=== PATIENT | female | born 1955 | race Caucasian/White ===

== ENCOUNTER 2018-04-20 15:59 | Inpatient (IN) | payer MEDICAID ==
[~2018-04-20] VITALS: Ht 157.5 cm; Wt 48.6 kg
[2018-05-27] MEDS ORDERED: VITAMIN B COMPL1 SGL PO (10:55)
[2018-05-27] MEDS ORDERED: NITROSTAT0.3 MG SL (14:58)
[2018-07-27] VITALS (11 sets, daily range): BP systolic 84–114; BP diastolic 37–69; PULSE 53–67; TEMP 97–98
--- NOTE | 2018-07-27 00:30 | NUR ---
Patient called out stating she needed to use the restroom. Patient reluctant to get up out of bed as she used the bedpan earlier and had not been out of bed yet as she refused to get up to ambulate earlier. Patient assisted to a sitting position with assist x 2 and sat for a few minutes before ambulating a few feet to the bedside commode. Patient is hesitant on putting weight on the RLE using a toe touch at this time. Patient voided and then was assisted back into bed with assist x 2 stating she was nauseous and needed IV Morpine due to the level of pain. Bed remains in a low position with call light in reach.
[2018-07-27] MEDS ORDERED: 00186-0370-20 IH (05:39)
[2018-07-27] MEDS ORDERED: PROAIR HFA0.09 MG/AC IH (05:40)
--- NOTE | 2018-07-27 06:42 | NUR ---
PT ADMITTED AMBULATORY TO ROOM 331. IV TO LFA, MEDICATIONS GIVEN, PT TO SURGERY PER BED. CONSENT SIGNED ON CHART.
--- NOTE | 2018-07-27 11:03 | NUR ---
PT TO ROOM 331 PER BED BY [facility]. REPORT FROM [facility] @ 1049. PT DROWSEY BUT AROUSABLE. DRESSING TO RIGHT HIP CDI WITH OCCLUSIVE FOAM TAPE. LUNGS CTA, BOWEL SOUNDS PRESENT PEDAL PULSES PALPABLE. SCD BILATERALLY.
--- NOTE | 2018-07-27 14:23 | NUR ---
SW met with patient to discuss discharge planning. Patient lives alone in [place]. She reports her daughter lives 7 miles away and will be there to help her where needed. She originally wanted to go to [facility] however sw called Kinjal at the [facility] who reports Medicaid will not pay for swing bed and they would not be able to accept. CONG talked with patient about this and she reports she would like to go home. SW offered HH or OP therapy, she denied both. Patients PCP is Dr Parks and she obtains her mediations from [facility]. Patient has a walker and reports her home is ready and has a tub transfer bench as well. SW will continue to follow for discharge needs.
--- NOTE | 2018-07-27 15:05 | NUR ---
Initial visit; Patient thanked Box [employer]pper for looking in on her and offering God's blessings.
--- NOTE | 2018-07-27 15:10 | NUR ---
PT REPORTS THAT PAIN WAS 8/10 PRIOR TO MEDICATION AND NOW IS 2/10.
--- NOTE | 2018-07-27 17:20 | NUR ---
attempted to ambulate pt to br unsucessful. Patient became lightheaded and nauseaus. Returned to bed iv zofran given per orders, pt voided in bedpan. pt reporting increasing pain.PO pain meds given per order.
--- NOTE | 2018-07-27 20:00 | NUR ---
ASSESSEMENT COMPLETE SEE NOTE. VS STABLE.
--- NOTE | 2018-07-27 21:00 | NUR ---
Patient refusing to ambulate this evening at this time. Educated on next time she needs to use the restroom we would get up instead of using the bedpan like she did on day shift. Patient seems to be hesitant on following through with getting up later, will re-inforce.
[2018-07-28] VITALS: BP 96/46; PULSE 61; TEMP 98.5
--- NOTE | 2018-07-28 00:30 | NUR ---
Patient called out stating she needed to use the restroom. Patient reluctant to get up out of bed as she used the bedpan earlier and had not been out of bed yet as she refused to get up to ambulate earlier. Patient assisted to a sitting position with assist x 2 and sat for a few minutes before ambulating a few feet to the bedside commode. Patient is hestitant on putting weight on the RLE using a toe touch at this time. Patient voided and then was assisted back into bed with assist x 2 stating she was nauseous and needed IV Morphine due to the level of pain. Bed remains in a low position with call light in reach.
[2018-07-28 04:00] VITALS: BP 94/51; PULSE 73; TEMP 98.3
--- NOTE | 2018-07-28 06:40 | NUR ---
bedside shift report received from Fiorella RN, Dr Son in to see patient
--- NOTE | 2018-07-28 07:03 | NUR ---
assisted up to bathroom with 1 assist, moves slow but with steady gait
--- NOTE | 2018-07-28 08:22 | NUR ---
sitting up in chair eating breakfast, c/o pain 12/19 and medicated with hydrocodone 7.5mg 2 tabs
[2018-07-28 08:59] VITALS: BP 82/32; PULSE 54; TEMP 98.5
--- NOTE | 2018-07-28 09:15 | NUR ---
physical therapy in to work with patient, ambulating in tran with slow steady gait, then occupational therapy in to visit with patient, remains up in chair
--- NOTE | 2018-07-28 10:15 | NUR ---
resting in chair talking on the phone
--- NOTE | 2018-07-28 10:33 | NUR ---
full assessment completed, see interventions for further info
[2018-07-28 12:26] VITALS: BP 85/45; PULSE 59; TEMP 97.7
--- NOTE | 2018-07-28 12:32 | NUR ---
pain is currently 6.10 and medicated with roxicodone 10mg, will order lunch soon
--- NOTE | 2018-07-28 13:42 | NUR ---
back to bed after therapy and is eating lunch
--- NOTE | 2018-07-28 15:54 | NUR ---
c/o pain 01/19, medicated with hydrocodone 7.5mg 2 tabs
[2018-07-28 16:10] VITALS: BP 107/77; PULSE 80; TEMP 98
--- NOTE | 2018-07-28 19:04 | NUR ---
bedside shift report given to PHOENIX Silvestre
--- NOTE | 2018-07-28 20:00 | NUR ---
Shift assessment complete. Patient c/o 10/19 in right hip. Prn pain medication given. Right hip dressing CDI. Will continue to monitor.
[2018-07-28 21:41] VITALS: BP 94/42; PULSE 71; TEMP 98.6
[2018-07-29 00:54] VITALS: BP 95/46; PULSE 66; TEMP 99.6
[2018-07-29 05:13] VITALS: BP 99/49; PULSE 58; TEMP 99
[2018-07-29] MEDS ORDERED: XARELTO10 MG PO (06:36)
[2018-07-29] MEDS ORDERED: NORCO 325 MG-7.1 TAB PO (06:37)
[2018-07-29] MEDS ORDERED: ROXICODONE 55 MG/TAB PO (06:37)
[2018-07-29] MEDS ORDERED: Patient's Own Medica IH ×2 (06:38)
--- NOTE | 2018-07-29 07:00 | NUR ---
awake resting in bed, bedside shift report received from PHOENIX Silvestre
[2018-07-29 07:02] VITALS: BP 86/39; PULSE 55; TEMP 98.4
--- NOTE | 2018-07-29 08:00 | NUR ---
up in chair and has had breakfast, full assessment completed, see interventions for further info,
--- NOTE | 2018-07-29 09:15 | NUR ---
occupational therapy in to work with patient and assist with taking a shower
--- NOTE | 2018-07-29 11:00 | NUR ---
ambulating in tran with physical therapy
[2018-07-29 11:30] VITALS: BP 94/48; PULSE 59; TEMP 98.4
--- NOTE | 2018-07-29 11:35 | NUR ---
c/o pain 12/19 and medicated with roxicodone 10mg po
--- NOTE | 2018-07-29 11:54 | NUR ---
SW student was informed that OT recommends HH with OT. Dr. Son has overridden this recommendation and is not ordering HH. No additional needs at this time. Patient is to discharge back home today, 07/29.
--- NOTE | 2018-07-29 12:28 | NUR ---
Follow-up visit; Patient thanked for looking in on her and wishing her well.
--- NOTE | 2018-07-29 12:30 | NUR ---
up in chair eating lunch, denies needs
--- NOTE | 2018-07-29 13:14 | NUR ---
ambulated out to tran with physical therapy for group exercises
--- NOTE | 2018-07-29 14:31 | NUR ---
in bed and appears to be dozing
--- NOTE | 2018-07-29 16:00 | NUR ---
resting in bed, when asked about pain she grimaces and states she is still having pain after the pain pills and just doesn't feel as good today, states she called Dr Son office to ask if she could stay another day, informed her she could have notified myself and I would have notified Dr Son, will talk with Dr Son
[2018-07-29 16:18] VITALS: BP 115/44; PULSE 69; TEMP 99.6
--- NOTE | 2018-07-29 16:28 | NUR ---
called Dr Son office and left message with Domenic RN, nurse at the office
--- NOTE | 2018-07-29 17:12 | NUR ---
entered room and her daughter is here and she states she is ready to go home, discharge instructions given to her and her daughter and verbalizes understanding
--- NOTE | 2018-07-29 17:15 | NUR ---
discharged per WC
== END 2018-07-29 17:15 | disposition home or self-care (01) | DRG 470 ==
LOC: JCC 05-26 07:30
PROVIDERS: ADMIT Orthopaedic Surgery
PROC: 0SR90JA Replacement of Right Hip Joint with Synthetic Substitute, Uncemented, Open Approach (ICD-10-PCS; principal; 2018-07-27 07:30)
DX: M16.11 Unilateral primary osteoarthritis, right hip (principal); M79.7 Fibromyalgia; J45.909 Unspecified asthma, uncomplicated
CPT/HCPCS: A9284; C1776; J0690; J1100; J2250; J2270; J2370; J2405; J2704; J3010; J7042; J7120

== ENCOUNTER → 2018-05-06 | Outpatient (CLI) | payer MEDICAID | LOC: COL.PUL 07:56 | DX: R09.89 Other specified symptoms and signs involving the circulatory and respiratory systems (principal) ==

== ENCOUNTER 2018-05-18 13:50 | Outpatient (RCR) | payer MEDICAID ==
[2018-05-27] MEDS ORDERED: VITAMIN B COMPL1 SGL PO (10:55)
[2018-05-27] MEDS ORDERED: NITROSTAT0.3 MG SL (14:58)
[2018-07-27] MEDS ORDERED: 00186-0370-20 IH (05:39)
[2018-07-27] MEDS ORDERED: PROAIR HFA0.09 MG/AC IH (05:40)
[2018-07-29] MEDS ORDERED: XARELTO10 MG PO (06:36)
[2018-07-29] MEDS ORDERED: NORCO 325 MG-7.1 TAB PO (06:37)
[2018-07-29] MEDS ORDERED: ROXICODONE 55 MG/TAB PO (06:37)
[2018-07-29] MEDS ORDERED: Patient's Own Medica IH ×2 (06:38)
== END 2018-08-16 | disposition still patient (30) ==
LOC: MKS.ESL.PT
DX: Z01.818 Encounter for other preprocedural examination (principal); M16.11 Unilateral primary osteoarthritis, right hip

== ENCOUNTER → 2018-05-18 | Outpatient (CLI) | payer MEDICAID | LOC: COL.LAB 11:19 | DX: Z01.812 Encounter for preprocedural laboratory examination (principal) ==

== ENCOUNTER 2018-05-27 10:43 | Emergency (ER) | payer MEDICAID ==
[~2018-05-27] VITALS: Ht 157.5 cm; Wt 48.6 kg
[2018-05-27 10:49] VITALS: TEMP 97.3
[2018-05-27] MEDS ORDERED: VITAMIN B COMPL1 SGL PO (10:55)
[2018-05-27 11:37] LABS: BASO # 0.1 (0.0-0.2); BASO % 0.8 % (0.0-2.0); EOS # 0.4 (0.0-0.7); EOS % 5.5 % (0-4.0); GRAN # 4.8 (1.4-6.5); HEMATOCRIT 44.2 % (37.0-47.0); HEMOGLOBIN 14.7 g/dl (12.5-16.0); LYMPH # 1.6 (1.2-3.4); MEAN CELL VOLUME 97 fl (80.0-100.0); MEAN CORPUSCULAR HEMOGLOBIN 32 pg (27.0-31.0); MEAN CORPUSCULAR HGB CONC 33 g/dl (33.0-37.0); MEAN PLATELET VOLUME 8.9 fl (7.4-10.4); MONO # 0.6 (0.1-0.6); MONO % 7.4 % (1.7-9.3); PLATELET COUNT 312 K/mm3 (130-400); RED BLOOD COUNT 4.56 M/mm3 (4.10-5.30); REDCELL DISTRIBUTION WIDTH-CV 11.9 % (11.5-14.5)
[2018-05-27 11:38] LABS: ALANINE AMINOTRANSFERASE 17 U/L (9-52); ALBUMIN 4.6 gm/dL (3.5-5.0); ALKALINE PHOSPHATASE 84 U/L (50-136); ANION GAP 11 mmol/L (7-16); AST,SGOT 28 U/L (15-37); BILIRUBIN,TOTAL 0.7 mg/dL (0.0-1.0); BLOOD UREA NITROGEN 12 mg/dL (7-17); CALCIUM 10.2 mg/dL (8.4-10.2); CARBON DIOXIDE 27 mmol/L (22-30); CHLORIDE 103 mmol/L (98-107); CREATININE, serum 0.66 mg/dL (0.52-1.25); GLUCOSE 86 mg/dL (74-106); LIPASE 77 U/L (23-300); POTASSIUM 3.8 mmol/L (3.4-5.0); SODIUM 142 mmol/L (137-145)
[2018-05-27 11:52] LABS: TROPONIN-I < 0.012 ng/mL (0.000-0.034)
[2018-05-27] MEDS ORDERED: NITROSTAT0.3 MG SL (14:58)
[2018-05-27 15:07] VITALS: BP 122/80; PULSE 59
== END 2018-05-27 15:07 | disposition home or self-care (01) ==
LOC: COL.ER 10:43
PROVIDERS: Emergency Medicine
DX: R07.9 Chest pain, unspecified (principal); R42 Dizziness and giddiness

== ENCOUNTER → 2018-07-06 | Outpatient (CLI) | payer MEDICAID ==
[~2018-07-06] MED LIST: NITROSTAT0.3 MG SL; VITAMIN B COMPL1 SGL PO
== END ==
LOC: COL.PUL 12:48
DX: R06.02 Shortness of breath (principal)
CPT/HCPCS: J7674

== ENCOUNTER → 2018-07-14 | Outpatient (CLI) | payer MEDICAID | LOC: COL.LAB 09:56 | DX: Z01.812 Encounter for preprocedural laboratory examination (principal) ==

== ENCOUNTER → 2018-12-02 | Outpatient (CLI) | payer MEDICAID ==
[~2018-12-02] MED LIST changes: +00186-0370-20 IH; +NORCO 325 MG-7.1 TAB PO; +PROAIR HFA0.09 MG/AC IH; +Patient's Own Medica IH; +ROXICODONE 55 MG/TAB PO; +XARELTO10 MG PO
[2018-12-02 17:58] LABS: BASO % 0.6 % (0.0-2.0); EOS # 0.4 (0.0-0.7); EOS % 5.6 % (0-4.0); GRAN # 4.4 (1.4-6.5); GRAN % 67.2 % (42.2-75.2); HEMATOCRIT 39.5 % (37.0-47.0); HEMOGLOBIN 12.9 g/dl (12.5-16.0); LYMPH # 1.2 (1.2-3.4); LYMPH % 18.1 % (20.0-51.0); MEAN CELL VOLUME 97 fl (80.0-100.0); MEAN CORPUSCULAR HEMOGLOBIN 32 pg (27.0-31.0); MEAN CORPUSCULAR HGB CONC 33 g/dl (33.0-37.0); MEAN PLATELET VOLUME 9.3 fl (7.4-10.4); MONO # 0.5 (0.1-0.6); MONO % 8.2 % (1.7-9.3); PLATELET COUNT 286 K/mm3 (130-400); RED BLOOD COUNT 4.08 M/mm3 (4.10-5.30); REDCELL DISTRIBUTION WIDTH-CV 12.6 % (11.5-14.5)
[2018-12-02 18:04] LABS: BILIRUBIN,TOTAL 0.5 mg/dL (0.0-1.0); CALCIUM 9.8 mg/dL (8.4-10.2); CREATININE, serum 0.63 (0.52-1.25); POTASSIUM 3.9 mmol/L (3.4-5.0)
[2018-12-02 18:33] LABS: THYROID STIMULATING HORMONE 1.58 uIU/mL (0.465-4.680)
== END ==
LOC: ZCOL.LAB 17:24
PROVIDERS: Family Medicine
DX: R53.83 Other fatigue (principal)

== ENCOUNTER → 2022-03-07 | Outpatient (CLI) | payer MEDICARE, MEDICAID | LOC: COL.RAD 09:26 | DX: M41.86 Other forms of scoliosis, lumbar region (principal); T18.8XXA Foreign body in other parts of alimentary tract, initial encounter; X58.XXXA Exposure to other specified factors, initial encounter; R19.5 Other fecal abnormalities ==

== ENCOUNTER → 2022-03-12 | Outpatient (CLI) | payer MEDICARE, MEDICAID | LOC: COL.RAD 09:08 | DX: K58.1 Irritable bowel syndrome with constipation (principal); Z18.89 Other specified retained foreign body fragments ==